=== PATIENT | female | born 1955 ===

== ENCOUNTER → 2016-12-29 | Outpatient (REF) | payer BC, MEDICAID | LOC: M LAB REF 11:00 | PROVIDERS: ATTEND Registered Nurse | DX: L82.1 Other seborrheic keratosis (principal) ==

== ENCOUNTER → 2017-01-08 | Outpatient (REF) | payer BC, MEDICAID | LOC: M LAB REF 13:42 | PROVIDERS: ATTEND Surgery | DX: L82.1 Other seborrheic keratosis (principal) ==